=== PATIENT | female | born 2000 | race Caucasian/White ===

== ENCOUNTER 2018-02-19 13:51 | Emergency (ER) | payer BC ==
[2018-02-19 14:17] VITALS: BP 121/81
--- NOTE | 2018-02-19 14:22 | UC ---
Throat Pain/Nasal Joshua HPI - HPI Summary HPI Summary: Pt presents with 6 days of feeling fatigued, body aches, sore throat, and mild cough. Over the last 3 days she has had a fever and has been taking ibuprofen intermittently. Today she developed a sore throat with enlarged lymph nodes. Denies SOB, chest pain, abdominal pain, n/v/d/c, or dysuria. - History of Current Complaint Chief Complaint: UCGeneralIllness Stated Complaint: SORE THROAT Time Seen by Provider: 02/19/18 14:22 Hx Obtained From: Patient Hx Last Menstrual Period: 01/29/18 Onset/Duration: Gradual Onset Severity: Mild Pain Intensity: 4 Pain Scale Used: 0-10 Numeric Cough: Nonproductive - Allergies/Home Medications Allergies/Adverse Reactions: Allergies Allergy/AdvReac Type Severity Reaction Status Date / Time No Known Allergies Allergy Verified 02/19/18 14:16 PMH/Surg Hx/FS Hx/Imm Hx - Additional Past Medical History Additional PMH: None. Previously Healthy: Yes - Surgical History Surgical History: None Surgery Procedure, Year, and Place: denies - Family History Known Family History: Positive: None, Other - Alcoholism - Social History Occupation: Student Lives: Dormitory/Roommates Alcohol Use: Weekly Substance Use Type: Marijuana Smoking Status (MU): Never Smoked Tobacco Review of Systems Constitutional: Fever, Fatigue, Other - Body aches Skin: Negative Eyes: Negative ENT: Sore Throat Respiratory: Cough Cardiovascular: Negative Gastrointestinal: Negative Neurovascular: Negative Musculoskeletal: Negative Neurological: Headache Psychological: Negative All Other Systems Reviewed And Are Negative: Yes Physical Exam - Summary Physical Exam Summary: GENERAL: Mildly ill appearing. NAD. SKIN: No rashes, sores, lesions, or open wounds. HEENT: Head: AT/NC Eyes: Conjunctiva clear without inflammation or discharge. Ears: Hearing grossly normal. TMs intact, no bulging, erythema, or edema. Nose: Nasal mucosa pink and moist. NTTP maxillary and frontal sinus. Throat: Posterior oropharynx mild erythema and 2+ tonsillar enlargement. No exudates. Uvula midline. No hoarse voice or muffled voice. NECK: Supple. TTP tonsillar LAD. Left tonsillar node 1.0cm in size. CHEST: CTAB. No r/r/w. No accessory muscle use. Breathing comfortably and in no distress. CV: RRR. Without m/r/g. Pulses intact. Brisk cap refill. NEURO: Alert. CN II-XII grossly intact. PSYCH: Age appropriate behavior. Triage Information Reviewed: Yes Vital Signs: Initial Vital Signs Temp 101.3 F 02/19/18 14:12 Pulse 126 02/19/18 14:12 Resp 18 02/19/18 14:12 BP 121/81 02/19/18 14:12 Pulse Ox 100 02/19/18 14:12 Throat Pain/Nasal Course/Dx - Course Course Of Treatment: POC strep negative. POC flu B positive. CXR: IMPRESSION: No evidence for pneumonia. Negative exam. Advised to rest, take tylenol alternating with ibuprofen prn fever, and drink plenty of fluids. Advised to f/ u with her PCP if her lymph nodes do not reduce in size 4-6 weeks after she recovers from the flu. - Differential Dx/Diagnosis Provider Diagnoses: Influenza B Discharge - Sign-Out/Discharge Documenting (check all that apply): Discharge/Admit/Transfer - Discharge Plan Condition: Stable Disposition: HOME Patient Education Materials: Influenza (ED) Forms: *Work Release Referrals: No Primary Care Phys,NOPCP [Primary Care Provider] - Additional Instructions: If you develop a fever, shortness of breath, chest pain, new or worsening symptoms - please call your PCP or go to the ED. 1) Rest and drink plenty of fluids 2) May take tylenol alternating every 2 hours with ibuprofen for fever - Billing Disposition and Condition Condition: STABLE Disposition: HOME
--- NOTE | 2018-02-19 15:25 | RAD ---
INDICATION: Cough. Asthma. COMPARISON: August 22, 2017 CT abdomen TECHNIQUE: Dual energy PA and routine lateral views of the chest were obtained. REPORT: Clear lungs and pleural spaces. Negative for pneumothorax. The heart, pulmonary vasculature, and mediastinal contours are unremarkable. Unremarkable osseous structures and soft tissue contours. IMPRESSION: No evidence for pneumonia. Negative exam.
== END 2018-02-19 16:00 | disposition home or self-care (01) ==
LOC: UCEAST 13:51
DX: J10.1 Influenza due to other identified influenza virus with other respiratory manifestations (principal)
CPT/HCPCS: 71046; 87502; 87651; 99212; G0463